=== PATIENT | female | born 1950 | race Caucasian/White ===

== ENCOUNTER → 2016-10-15 | Day surgery (SDC) | payer OTHER ==
[~2016-10-15] VITALS: Ht 165.1 cm; Wt 90.0 kg
[~2016-10-15] MED LIST: ACET1TAB84 PO; DOCU-94 PO; ESTCR; METO50TA16 PO; METOPROLOL TARTRATE 1 MG/ML VIAL IV STA; METOPROLOL TARTRATE 1 MG/ML VIAL ONE; POTA20TA16 PO; PROPOFOL IV EMULSION 10 MG/ML 20 ML VIAL IV ONE; RIVA1TAB4 PO; SPIR25TA PO; TORS20TA2 PO
[2016-10-15 07:27] VITALS: BP 170/100; PULSE 124; TEMP 36.6; O2SAT 96
[2016-10-15 07:36] VITALS: Ht 165.1 cm; Wt 90.0 kg
--- NOTE | 2016-10-15 07:53 | History & Physical Bridge Note ---
H&P Re-Evaluation Bridge Note: I have examined the patient, reviewed the History & Physical and in the interval since the performance of the History & Physical I have noted the following changes of clinical significance: No changes noted
[2016-10-15 07:58] VITALS: BP 159/83; PULSE 93; O2SAT 99
[2016-10-15 08:01] VITALS: BP 106/64; PULSE 94; O2SAT 99
[2016-10-15 08:06] VITALS: BP 103/61; PULSE 69; O2SAT 99
--- NOTE | 2016-10-15 08:11 | Cardiology Procedure Brief Nt ---
Preliminary Cardiology Note Procedure Date Oct 15, 2016. Pre-Procedure Diagnosis symptomatic atrial fibrillation Post-Procedure Diagnosis successful conversion to SR Procedure(s) Performed [facility] Genetic Engineer Ashlyn Novoa DO Business Information Analyst(s) not applicable Estimated Blood Loss none Preliminary Findings Three synchronized counter shocks were delivered, of 300 J, 360 J, and 360 J of biphasic energy. Successful conversion noted after 3rd shock. Recommendations Continue oupt medications including Xarelto. 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
--- NOTE | 2016-10-15 08:12 | Cardioversion ---
Electricial Cardioversion Rpt Electrical Cardioversion Rprt Procedure Date Oct 15, 2016. Pre-Procedure Diagnosis symptomatic atrial fibrillation Post-Procedure Diagnosis successful conversion to SR Procedure(s) Performed Direct current cardioversion Operations Plant Attendant Ashlyn Novoa DO Podiatric Physician(s) not applicable Estimated Blood Loss none Preliminary Findings Three synchronized counter shocks were delivered, of 300 J, 360 J, and 360 J of biphasic energy. Successful conversion noted after 3rd shock. Recommendations Continue oupt medications including Xarelto. 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
--- NOTE | 2016-10-15 08:22 | Anesthesiology Progress Note ---
Anesthesia Post Op Note Date & Time Oct 15, 2016 at 08:21 Vital Signs Pain Intensity: 0 Vital Signs Past 12 Hours Date Time Temp Pulse Resp B/P (MAP) Pulse Ox O2 Delivery O2 Flow Rate FiO2 10/15/16 08:20 64 16 112/76 (88) 94 Nasal Cannula 3 10/15/16 08:10 66 16 110/75 (87) 94 Nasal Cannula 3 10/15/16 08:06 69 16 103/61 99 Nasal Cannula 4 10/15/16 08:01 94 16 106/64 99 Nasal Cannula 4 10/15/16 07:58 93 16 159/83 99 Nasal Cannula 4 10/15/16 07:27 36.6 124 16 170/100 96 Room Air Notes Mental Status: alert / awake / arousable, participated in evaluation Pt Amnestic to Procedure: Yes Nausea / Vomiting: adequately controlled Pain: adequately controlled Airway Patency, RR, SpO2: stable & adequate BP & HR: stable & adequate Hydration State: stable & adequate Anesthetic Complications: no major complications apparent
[2016-10-15 09:00] VITALS: BP 134/64; PULSE 66; O2SAT 99
--- NOTE | 2016-10-15 09:05 | Discharge Instructions ---
Discharge Instructions Procedure Procedure Date: Oct 15, 2016. Reason for Visit: Atrial fibrillation, Cardioversion Discharge Discharge Date: Oct 15, 2016. Discharge Diagnosis: Successful conversion to sinus rhythm. Last Recorded Wt (Kilograms): 90 Anesthesia Post Anesthesia Instructions: If you have had General Anesthesia or IV Sedation: * Do not drive today. * Resume driving when surgeon permits. * Do not make important decisions or sign legal documents today. * Call surgeon for: 1. Temperature elevations greater than 101 degrees F. 2. Uncontrollable pain. 3. Excessive bleeding. 4. Persistent nausea and vomiting. 5. Medication intolerance (nausea, vomiting or rash). * For nausea and vomiting use only clear liquids such as: tea, soda, bouillon until nausea subsides, then gradually increase diet as tolerated. * If you have any concerns or questions, call your surgeon's office. If physician is unavailable and it is an emergency, call 911 or go to the nearest emergency room. Instructions Activity Recommendations: limitations as noted below Recommended Home Diet: resume previous diet Provider Instructions ACTIVITY RECOMMENDATIONS: Resume activities as tolerated with no limitations unless specified. _x_ No lifting over _10_ pounds for 24 hours. _x_ Do not engage in vigorous exercise, sexual activity, or sports for 24 hours. _x_ Do not drive or operate any motorized equipment for 24 hours. _x_ You may return to work/school tomorrow. If you experience coughing up or vomiting of blood, contact ___Dr Novoa, Follow Up [facility] Recommendations: Call your doctor if: * Temperature above 101 degrees * Pain not relieved by pain medicine ordered * There is increased drainage or redness from any incision * You have any unanswered questions or concerns. Your Doctors Instructions noted above were prepared by provider Lyle Nvooa. Patient Signature Section: Patient Instructions Signature Page Rhonda Lacy Patient (or Guardian) Signature/Date: I have read and understand the instructions given to me by my caregivers. Caregiver/RN/Doctor Signature/Date: The above-named patient and/or guardian has received patient instructions on this date. + Original Patient Signature Page (only) stays with chart. Please make copy for patient.
== END | disposition home or self-care (01) ==
LOC: C.CATH 07:26
PROVIDERS: ATTEND Specialist
DX: I48.1 Persistent atrial fibrillation (principal); E66.9 Obesity, unspecified; I50.32 Chronic diastolic (congestive) heart failure; I27.2 Other secondary pulmonary hypertension; Z90.710 Acquired absence of both cervix and uterus; Z90.79 Acquired absence of other genital organ(s); F17.200 Nicotine dependence, unspecified, uncomplicated; Z79.01 Long term (current) use of anticoagulants; Z83.3 Family history of diabetes mellitus